=== PATIENT | female | born 2000 | race Hispanic/Latino ===

== ENCOUNTER 2018-06-14 14:44 | Emergency (ER) | payer SELFPAY ==
[2018-06-14 16:05] LABS: #Basophils 0.1 thou/uL (0.0-0.2); #Eosinphils 0.2 thou/uL (0.0-0.7); #Lymphocytes 2.2 thou/uL (1.20-3.40); #Monocytes 0.6 thou/uL (0.11-0.59); #Neutrophils 3.4 thou/uL (1.40-6.50); %Basophils 0.9 % (0.0-1.0); %Eosinophils 2.7 % (0.0-10.0); %Lymphocytes 34.4 % (28.0-48.0); Hemoglobin 9.3 g/dL (12.0-16.0); Mean Corpuscular HGB CONC 31.9 g/dL (32.0-36.0); Mean Corpuscular Hemoglobin 23.2 pg (25.0-35.0); Mean Corpuscular Volume 72.8 fL (78.0-98.0); Mean Platelet Volume 8.6 fL (7.4-10.4); Platelet Count 305 thou/uL (130-400); Red Blood Cell (RBC) Count 3.98 mill/uL (4.00-5.20); White Blood Cell (WBC) Count 6.5 thou/uL (4.8-10.8)
[2018-06-14 16:23] LABS: ALT (SGPT) 14 U/L (8-55); AST (SGOT) 14 U/L (5-30); Albumin 4.1 g/dL (3.5-5.0); Alkaline Phosphatase 95 U/L (40-150); Anion Gap 12 mmol/L (10-20); BUN (Urea Nitrogen) 7 mg/dL (8.4-21.0); Bilirubin, Total 0.4 mg/dL (0.2-1.2); Calc. Creatinine Clearance 0 mL/min (70-130); Calcium 9.1 mg/dL (7.8-10.44); Carbon Dioxide 23 mmol/L (22-29); Chloride 107 mmol/L (98-107); Estimated GFR-MDRD Greater than 90; Globulin 3.1 g/dL (2.4-3.5); Glucose 81 mg/dL (70-105); Potassium 3.9 mmol/L (3.5-5.1); Protein, Total 7.2 g/dL (6.0-8.3); Sodium 138 mmol/L (136-145)
[2018-06-14 18:33] LABS: BHCG - Serum Negative (NEGATIVE); Pregs Control Background? CLEAR/WHITE (CLR/WHITE); Pregs Control Bar Appear? YES (CONTROL BAR)
[2018-06-14] MEDS ORDERED: diphenhydrAMINE 50 MG/ML VIAL ONE (19:47)
[2018-06-14] MEDS ORDERED: Ketorolac Tromethamine 30 MG/ML VIAL ONE (19:47)
[2018-06-14] MEDS ORDERED: Metoclopramide HCl 10 MG/2 ML VIAL ONE (19:47)
[2018-06-14 20:40] LABS: Bilirubin Negative (Negative); Blood, Urine Negative (Negative); Clarity CLEAR (Clear); Glucose, Urine (Dipstick) Negative (Negative); Leukocyte Negative (Negative); Nitrite Negative (Negative); Protein, Urine (Dipstick) Negative (Neg-Trace); Specific Gravity, Urine 1.009 (1.002-1.036)
[2018-06-14 20:41] LABS: Pregnancy Test - Urine (BHCG) Negative (Negative); Pregu Control Background? CLEAR/WHITE (CLR/WHITE); Pregu Control Bar Appear? YES (CONTROL BAR); Specific Gravity 1.009 (1.002-1.036)
[2018-06-14] MEDS ORDERED: Meclizine HCl 25 MG TAB ONE (21:11)
== END 2018-06-14 21:55 | disposition home or self-care (01) ==
LOC: ERS 14:44
DX: R51 Headache (principal); D64.9 Anemia, unspecified
CPT/HCPCS: 36415; 80053; 81003; 81025; 84703; 85025; 86850; 86900; 86901; 96365; 96366; 96375; J1200; J1885; J2765; J8499

== ENCOUNTER 2019-04-10 11:10 | Emergency (ER) | payer OTHER, MEDICAID ==
[2019-04-10 11:35] LABS: Bilirubin Negative (Negative); Blood, Urine Negative (Negative); Clarity Turbid (Clear); Glucose, Urine (Dipstick) Normal (Negative); Leukocyte 25 Leu/uL (Negative); Mucous/LPF 1+ LPF (<2+); Nitrite Negative (Negative); Protein, Urine (Dipstick) 30 mg/dL (Neg-Trace); RBC/HPF 0-3 HPF (0-3); Urobilinogen 3 mg/dL (Less than 2)
[2019-04-10 11:44] LABS: Bacteria/HPF 1+ HPF (None Seen)
[2019-04-10] MEDS ORDERED: Acetaminophen 500 MG TAB ONE (11:45)
[2019-04-10] MEDS ORDERED: Ondansetron PF 4 MG/2 ML Vial ONE (11:45)
[2019-04-10 12:17] LABS: #Basophils 0.1 thou/uL (0.0-0.2); #Eosinphils 0.1 thou/uL (0.0-0.7); #Lymphocytes 0.9 thou/uL (1.20-3.40); #Monocytes 0.5 thou/uL (0.11-0.59); #Neutrophils 4.6 thou/uL (1.40-6.50); %Basophils 0.9 % (0.0-1.0); %Eosinophils 1.1 % (0.0-10.0); %Lymphocytes 15.3 % (28.0-48.0); %Monocytes 7.3 % (0.0-4.0); %Neutrophils 75.5 % (31.0-61.0); Mean Corpuscular HGB CONC 33.9 g/dL (32.0-36.0); Mean Corpuscular Hemoglobin 25.6 pg (25.0-35.0); Mean Corpuscular Volume 75.6 fL (78.0-98.0); Mean Platelet Volume 8.5 fL (7.4-10.4); Platelet Count 266 thou/uL (130-400); RBC Distribution Width 14.4 % (11.5-14.5); Red Blood Cell (RBC) Count 3.91 mill/uL (4.00-5.20); White Blood Cell (WBC) Count 6.1 thou/uL (4.8-10.8)
[2019-04-10 12:49] LABS: ALT (SGPT) 12 U/L (8-55); AST (SGOT) 18 U/L (5-34); Albumin 3.8 g/dL (3.5-5.0); Alkaline Phosphatase 80 U/L (40-100); Anion Gap 12 mmol/L (10-20); BUN (Urea Nitrogen) 9 mg/dL (7.0-18.7); Bilirubin, Total 0.7 mg/dL (0.2-1.2); Calc. Creatinine Clearance 0 mL/min (70-130); Calcium 9.2 mg/dL (7.8-10.44); Carbon Dioxide 23 mmol/L (22-29); Chloride 104 mmol/L (98-107); Estimated GFR-MDRD Greater than 90; Globulin 3.6 g/dL (2.4-3.5); Glucose 72 mg/dL (70-105); Lipase 17 U/L (8-78); Potassium 3.5 mmol/L (3.5-5.1); Protein, Total 7.4 g/dL (6.0-8.3); Sodium 135 mmol/L (136-145)
[2019-04-10] MEDS ORDERED: Morphine 4 MG/ML VIAL ONE (14:50)
--- NOTE | 2019-04-10 15:07 | MRI ---
LIMITED MRI OF THE ABDOMEN WITHOUT CONTRAST: Date: 04/10/2019 HISTORY: female with right lower quadrant abdominal pain. Concern for appendicitis. TECHNIQUE: Multiplanar, multisequence MR images were obtained of the abdomen without contrast. FINDINGS: There is an intrauterine . The cecum is displaced superiorly. No edema is seen surrounding t he cecum. There is a small structure adjacent to the cecum which may represent a normal appendix. No large fluid-filled appendix is seen to suggest acute appendicitis. No free fluid is seen in the pelvis. IMPRESSION: No evidence of acute appendicitis. POS: [facility]
== END 2019-04-10 15:30 | disposition home or self-care (01) ==
LOC: ERS 11:10
DX: O99.89 Other specified diseases and conditions complicating pregnancy, childbirth and the puerperium (principal); R10.31 Right lower quadrant pain; R19.7 Diarrhea, unspecified; O21.9 Vomiting of pregnancy, unspecified; Z3A.17 17 weeks gestation of pregnancy
CPT/HCPCS: 74181; 80053; 81003; 81015; 83690; 85025; 87804; 96361; 96374; J2270; J2405

== ENCOUNTER 2019-05-07 15:25 | Outpatient (CLI) | payer OTHER, MEDICAID ==
--- NOTE | 2019-05-07 17:05 | ULT ---
OBSTETRICAL ULTRASOUND: 05/07/19 COMPARISON: None. HISTORY: anatomy. TECHNIQUE: Multiplanar montesinos scale sonographic imaging of the gravid uterus obtained. FINDINGS: There is a single intrauterine gestation demonstrating a transverse presentation. The placenta is located posteriorly demonstrating no evidence for placental previa or abruption. head is to the maternal right. Amniotic fluid index is 13.1 cm. heart rate is 144 beats per minute. The nose and lips co uld not be well visualized on this examination secondary to position. intracranial contents, spine, four chamber heart view, kidneys, stomach, urinary bladder, umbil ical cord insertion, and umbilical cord appear grossly unremarkable. BIOMETRY: BPD 4.8 cm 20 weeks, 5 days Head circumference 18.7 cm 21 weeks, 1 day Abdominal circumference 15.5 cm 20 weeks, 5 days Femur length 3.4 cm 20 weeks, 5 days Average age based on ultrasound is 20 weeks, 6 days. Estimated date of delivery is 09/18/2019. Estimated weight is 373 grams +/- 54 grams. This is at the 24th percentile based on last menstr ual period. IMPRESSION: Single intrauterine gestation as detailed above. nose and lips are not well assessed on this ex am. POS: [facility]
== END 2019-05-07 15:26 | disposition home or self-care (01) ==
LOC: BICULT 15:25
PROVIDERS: ATTEND Family Medicine
DX: Z34.02 Encounter for supervision of normal first pregnancy, second trimester (principal); Z3A.20 20 weeks gestation of pregnancy
CPT/HCPCS: 76805

== ENCOUNTER 2019-07-28 00:48 | Day surgery (SDC) | payer MEDICAID, OTHER ==
[2019-07-28 01:14] VITALS: BP 111/57; TEMP 98.2; BMI 34.5
--- NOTE | 2019-07-28 01:47 | PDOC.FPROB ---
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 She reports pos movement, denies vag discahrge, vag bleeding, and LOF. Primary Care Physician: Amilcar FMR OB H&P: Current - Care : 1 Para: 0 Gestational age: 30 FMR OB H&P: History - Past Medical History PMH: Denies - OB History OB History: Primgravid, no complications reported this - TIMERS INSPECTOR History TIMERS INSPECTOR History: Denies - Surgical History Sx History: Denies - Social History Social History: Denies etoh, tobacco and drug use - Family History Family History: Denies FMR OB H&P: Medications - Current Home Medications: Medication Instructions Recorded Confirmed Type Iron Carb,Gl/FA/B12/C/Docusate 1 tab PO DAILY 07/28/19 07/28/19 History [Ferralet 90] 21/Iron Fu/Folic Acid 1 tablet PO DAILY 07/28/19 07/28/19 History [ Complete Caplet] Allergies/Adverse Reactions: Allergies Allergy/AdvReac Type Severity Reaction Status Date / Time No Known Allergies Allergy Verified 07/28/19 01:07 FMR OB H&P: ROS - Review of Systems General: denies: fever/chills, fatigue, recent trauma Eyes: denies: vision changes, scotomas ENT: denies: nasal congestion, rhinorrhea Cardiovascular: denies: chest pain Respiratory: denies: cough, shortness of breath Gastrointestinal: denies: abdominal pain, nausea, vomiting, diarrhea, constipation Genitourinary (Female): denies: incontinence, vaginal discharge, vaginal pain, vaginal bleeding, contractions, vaginal pressure Musculoskeletal: reports: pain (rt paralumbar/sciatic), stiffness, tenderness. denies: redness Neurologic: denies: numbness, weakness Integumentary: denies: rash Hematologic/Lymphatic: denies: prolonged or excessive bleeding FMR OB H&P: Vital Signs - Maternal Vital signs: Vital Signs - First Documented Temp Pulse Resp BP 98.2 F 63 18 111/57 L 07/28/19 01:06 07/28/19 01:06 07/28/19 01:06 07/28/19 01:06 - Heart Tones Baseline: 130 Variability: moderate Acceleration: present Deceleration: absent Category: category 1 [place] contractions every: None FMR OB H&P: Physical Exam - Physical Exam General: NAD, awake, alert and oriented HEENT: normocephalic and atraumatic, PERRLA, EOMI, MMM, conjunctiva clear, no scleral icterus, grossly normal vision, grossly normal hearing Neck: trachea midline, no LAD Heart: RRR, normal S1/S2, no murmurs/rubs/gallops, pulses present, no edema General: CTAB, no respiratory distress, good air movement, no rales/rhonchi, no wheezing Abdomen: soft, gravid, non-tender Musculoskeletal: normal gait and station, other (Pos straight leg on rt with paralumbar tenderness to palpation) Neurological: no focal deficit Lymphatic: no unusual bruising or bleeding, no purpura Psychiatric: normal mood and affect FMR OB H&P: A/P - Problem List (1) Musculoskeletal pain Current Visit: Yes Status: Acute Code(s): M79.18 - MYALGIA, OTHER SITE Disposition: Stable, recheck UA, pain control and monitor. Discussion: Date/Time: 07/28/19144 This H&P was discussed with Dr. Herrera who agrees with the above documentation and plan. 18 yo @ 32 weeks gestation presents for rt LBP and sciatic symptoms 1) MSK pain: - currently rated 7/10 - PO tylenol and benadryl for pain control - if no response 2mg IM morphine - no contractions on monitor FHTS reactive 2) ? UTI - dirty catch in outside ER, repeat clean catch if still dirty straight cath UA with reflex culture - abx if indicated pending results
[2019-07-28] MEDS ORDERED: hydrALAZINE 20 MG/ML VIAL SLOW IVP PRN (01:49)
[2019-07-28] MEDS ORDERED: diphenhydrAMINE 50 MG CAP PO SCH (01:51)
[2019-07-28] MEDS ORDERED: Acetaminophen 325 MG TAB PO SCH (02:00)
[2019-07-28] MEDS ORDERED: Morphine 4 MG/ML VIAL IM SCH (02:00)
[2019-07-28 02:14] LABS: Bacteria/HPF 1+ HPF (None Seen); Bilirubin Negative (Negative); Blood, Urine Negative (Negative); Clarity Turbid (Clear); Glucose, Urine (Dipstick) Normal (Negative); Leukocyte 250 Leu/uL (Negative); Mucous/LPF 1+ LPF (<2+); Nitrite Negative (Negative); Protein, Urine (Dipstick) 10 mg/dL (Neg-Trace); RBC/HPF 0-3 HPF (0-3); Squamous Epithelial 21-50 HPF (0-3); Urobilinogen 3 mg/dL (Less than 2); WBC/HPF 21-50 HPF (0-3)
[2019-07-28 02:15] LABS: Urine Culture Reflex No No
--- NOTE | 2019-07-28 02:38 | PDOC.BPN ---
<Vini Sahu - Last Filed: 07/28/19 02:37> - Brief Progress Note Repeat UA showed dirty catch, worse than previous with decreased bacterial content. No s/s of UTI. Pain well improved with tylenol, benadryl and IM morphine. Plan to DC to home with return precautions and recommend f/u with PCP next week. <Zina Herrera - Last Filed: 07/28/19 06:42> Addendum - Attending - Attending Attestation Date/Time: 07/28/19 0642 I personally evaluated the patient and discussed the management with Dr. Sahu. I agree with the History, Examination, Assessment and Plan documented above.
== END 2019-07-28 02:45 | disposition home or self-care (01) ==
LOC: L&D/OP 00:48
PROVIDERS: ATTEND Family Medicine
DX: O99.89 Other specified diseases and conditions complicating pregnancy, childbirth and the puerperium (principal); M79.18 Myalgia, other site; Z3A.32 32 weeks gestation of pregnancy
CPT/HCPCS: 81001; 96372; 99283; J2270; Q0163

== ENCOUNTER 2019-08-19 16:31 | Day surgery (SDC) | payer OTHER ==
[2019-08-19 16:36] VITALS: BMI 35.4
[2019-08-19 16:37] VITALS: BP 116/74; TEMP 99.3
[2019-08-19] MEDS ORDERED: hydrALAZINE 20 MG/ML VIAL SLOW IVP PRN (16:39)
--- NOTE | 2019-08-19 17:29 | PDOC.LDHP ---
Labor and Delivery H&P Chief complaint: contractions HPI: 18 y/o G1 at 35w6d, patient of Dr. Fitzgerald, presents with vaginal pain x 2 days and cramping starting this morning that she feels are similar to menstrual cramps. Denies VB, LOF, or decreased FM. ROS neg for HEENT, cv, pulm, gi, gu, neuro, psych, skin, musculoskeletal or constitutional symptoms other than mentioned above. OB History Details: first Current complications: none Past Medical History: migraines Current medications: pre-carlos a vitamins Previous surgical history: none Allergies/Adverse Reactions: Allergies Allergy/AdvReac Type Severity Reaction Status Date / Time No Known Allergies Allergy Verified 07/28/19 01:07 Social history: none - Physical Exam Vital signs reviewed and normal: yes General: NAD, resting Lungs: nonlabored breathing Abdomen: gravid Extremeties: no edema FHT: category 1 (140s, mod variability, + accels, no decels) [place] contractions every: irregular - Vaginal Exam cm dilated: 1 (exam limited due to maternal discomfort) Effacement: 25% Station: -3 - Assessment 18 y/o G1 at 35w6d with no e/o PTL. Declines to be rechecked. UA with no e/o infection and VP3 pending. status reassuring with reactive NST. - Plan -: D/c home with precautions. Advised to keep all appointments.
[2019-08-19 18:07] LABS: Bacteria/HPF None Seen HPF (None Seen); Bilirubin Negative (Negative); Blood, Urine Negative (Negative); Clarity Clear (Clear); Glucose, Urine (Dipstick) 30 mg/dL (Negative); Ketone, Urine Trace mg/dL (Negative); Leukocyte Negative Leu/uL (Negative); Nitrite Negative (Negative); Protein, Urine (Dipstick) 30 mg/dL (Neg-Trace); RBC/HPF 0-3 HPF (0-3); Specific Gravity, Urine 1.034 (1.002-1.036); Squamous Epithelial 0-3 HPF (0-3); Urine Culture Reflex No No; WBC/HPF 0-3 HPF (0-3)
== END 2019-08-19 18:28 | disposition home or self-care (01) ==
LOC: L&D/OP 16:31
PROVIDERS: ATTEND Family Medicine
DX: O47.03 False labor before 37 completed weeks of gestation, third trimester (principal); O23.593 Infection of other part of genital tract in pregnancy, third trimester; B96.89 Other specified bacterial agents as the cause of diseases classified elsewhere; Z3A.35 35 weeks gestation of pregnancy
CPT/HCPCS: 51701; 81001; 87480; 87510; 87660; 99283

== ENCOUNTER 2019-09-10 02:35 | Inpatient (IN) | payer OTHER ==
[2019-09-10 04:29] VITALS: BMI 36.0
[2019-09-10] MEDS ORDERED: Lidocaine 1% (PF) 30 ML VIAL SC PRN (04:38)
[2019-09-10] MEDS ORDERED: hydrALAZINE 20 MG/ML VIAL SLOW IVP PRN ×2 (04:38→15:25)
[2019-09-10] MEDS ORDERED: Acetaminophen 500 MG TAB PO PRN (04:38)
[2019-09-10] MEDS ORDERED: HYDROcodone/Acetaminophen 5/325 mg Tablet PO PRN ×4 (04:38→15:25)
[2019-09-10] MEDS ORDERED: Promethazine HCl 25 MG/ML VIAL IM PRN ×2 (04:38→09:11)
[2019-09-10] MEDS ORDERED: Butorphanol Tartrate 1 MG/ML VIAL SLOW IVP PRN (04:38)
[2019-09-10] MEDS ORDERED: NS / Oxytocin 40 units/1000ml 1,000 ML IV PRN (04:38)
[2019-09-10] MEDS ORDERED: Ondansetron PF 4 MG/2 ML Vial IVP PRN ×3 (04:38→15:25)
[2019-09-10] MEDS ORDERED: Ibuprofen 800 MG TAB PO PRN (04:38)
[2019-09-10] MEDS ORDERED: Lactated Ringer's 1,000 ML IV SCH ×2 (04:45)
[2019-09-10] MEDS ORDERED: NS w/ Oxytocin 10 units 500 ML IV SCH (04:45)
[2019-09-10] MEDS ORDERED: Penicillin G Potassium 5 MILL.UNITS in Sodium Chloride 0.9% 100 ML IVPB SCH (05:00)
[2019-09-10 05:25] LABS: Hemoglobin 7.8 g/dL (12.0-16.0); Mean Corpuscular HGB CONC 30.2 g/dL (32.0-36.0); Mean Corpuscular Volume 66.4 fL (78.0-98.0); Mean Platelet Volume 10.1 fL (7.4-10.4); Platelet Count 397 thou/uL (130-400); RBC Distribution Width 18.1 % (11.5-14.5); Red Blood Cell (RBC) Count 3.88 mill/uL (4.00-5.20); White Blood Cell (WBC) Count 8.1 thou/uL (4.8-10.8)
[2019-09-10 06:05] LABS: HBSAg Index 0.12 S/CO (0-0.99); Hep B Surf Ag Non-Reactive S/CO (NonReactive); Syphilis Antibody Nonreactive (Nonreactive); Syphilis Antibody Index 0.04 S/CO (<1.00 Non-Reactive)
[2019-09-10] MEDS ORDERED: Fentanyl 4 mcg/Bup 0.1% Cadd 100 ML ONE (08:42)
[2019-09-10] MEDS ORDERED: Acetaminophen 325 MG TAB PO PRN (09:11)
[2019-09-10] MEDS ORDERED: Naloxone HCl 0.4 mg/ml Vial IVP PRN ×2 (09:11)
[2019-09-10] MEDS ORDERED: Lactated Ringer's 500 ML IV PRN (09:11)
[2019-09-10] MEDS ORDERED: diphenhydrAMINE 50 MG/ML VIAL IVP PRN (09:11)
[2019-09-10] MEDS ORDERED: EPHEDRINE 25 MG/5 ML SYRINGE SLOW IVP PRN (09:11)
[2019-09-10] MEDS ORDERED: Fentanyl 4 mcg/Bupivacaine 0.1% Cassette 100 ML EPIDURAL SCH (09:15)
[2019-09-10] MEDS ORDERED: Communication Order-Pharmacy FS SCH (09:15)
[2019-09-10] MEDS: Penicillin G 2.5 MILL.units 2.5 MILL.UNITS in Premix Bag 1 BAG IVPB SCH ×2 (09:37→13:31)
[2019-09-10] MEDS ORDERED: Lidocaine 1% (PF) 30 ML VIAL ONE (13:29)
[2019-09-10] MEDS ORDERED: NS / Oxytocin 40 units/1000ml 1,000 ML ONE (13:29)
[2019-09-10] MEDS: NS / Oxytocin 40 units/1000ml 1,000 ML IV SCH ×2 (14:26→16:53)
[2019-09-10] MEDS ORDERED: Milk Of Magnesia 30 ML UDCUP PO PRN (15:25)
[2019-09-10] MEDS ORDERED: Bisacodyl 10 MG SUPP PR PRN (15:25)
[2019-09-10] MEDS ORDERED: Preparation H Ointment 28 GM TUBE PR PRN (15:25)
[2019-09-10] MEDS ORDERED: Lanolin Ointment 7 GM TUBE TOP PRN (15:25)
[2019-09-10] MEDS ORDERED: diphenhydrAMINE 25 MG CAP PO PRN (15:25)
[2019-09-10] MEDS ORDERED: Adacel (T-DAP) 0.5 ML SYRINGE IM ONE (15:25)
[2019-09-10] MEDS: Ibuprofen 800 MG TAB PO SCH (17:59)
[2019-09-10] MEDS: Ferrous Sulfate 325 MG TAB PO SCH (17:59)
[2019-09-11] MEDS: Ibuprofen 800 MG TAB PO SCH ×4 (01:04→22:27)
[2019-09-11] MEDS: Docusate Calcium (SURFAK) 240 MG CAP PO SCH ×3 (01:05→22:27)
[2019-09-11 05:19] LABS: Hemoglobin 6.3 g/dL (12.0-16.0); Mean Corpuscular HGB CONC 30.6 g/dL (32.0-36.0); Mean Corpuscular Hemoglobin 20.6 pg (25.0-35.0); Mean Corpuscular Volume 67.6 fL (78.0-98.0); Platelet Count 308 thou/uL (130-400); RBC Distribution Width 17.9 % (11.5-14.5); Red Blood Cell (RBC) Count 3.07 mill/uL (4.00-5.20); White Blood Cell (WBC) Count 10.5 thou/uL (4.8-10.8)
[2019-09-11] MEDS: Ferrous Sulfate 325 MG TAB PO SCH ×2 (09:14→16:19)
[2019-09-11 11:36] LABS: SARS-CoV-2 MS2 Positive; SARS-CoV-2 N Gene Negative; SARS-CoV-2 S Gene Negative; SARS-CoV-2 by NAA Not Detected (NotDetected); SARS-CoV-2 orf1ab Negative
[2019-09-12] MEDS: Ibuprofen 800 MG TAB PO SCH ×2 (05:58→13:35)
[2019-09-12 08:12] VITALS: BP 114/64; TEMP 98.5
[2019-09-12] MEDS: Ferrous Sulfate 325 MG TAB PO SCH ×2 (08:22→17:07)
[2019-09-12] MEDS: Docusate Calcium (SURFAK) 240 MG CAP PO SCH (08:22)
== END 2019-09-12 18:23 | disposition home or self-care (01) | DRG 807 ==
LOC: L&D/OP 02:35 → L&D 04:37 → 3SE 16:06
PROVIDERS: ADMIT Family Medicine; ATTEND Family Medicine
PROC: 10E0XZZ Delivery of Products of Conception, External Approach (ICD-10-PCS; principal; 2019-09-10)
PROC: 0W8NXZZ Division of Female Perineum, External Approach (ICD-10-PCS; 2019-09-10)
PROC: 0HQ9XZZ Repair Perineum Skin, External Approach (ICD-10-PCS; 2019-09-10)
DX: O99.824 Streptococcus B carrier state complicating childbirth (principal); Z37.0 Single live birth; O69.81X0 Labor and delivery complicated by cord around neck, without compression, not applicable or unspecified; O70.0 First degree perineal laceration during delivery; Z3A.39 39 weeks gestation of pregnancy
CPT/HCPCS: 36415; 51702; 85027; 86780; 86850; 86900; 86901; 87340; 87635; 99285; J0595; J2001; J2540; J2590; J3490; U0003

== ENCOUNTER 2020-04-10 14:13 | Emergency (ER) | payer OTHER ==
[2020-04-10 14:51] LABS: #Basophils 0.1 thou/uL (0.0-0.2); #Eosinphils 0.2 thou/uL (0.0-0.7); #Monocytes 0.5 thou/uL (0.11-0.59); #Neutrophils 6.8 thou/uL (1.40-6.50); %Basophils 0.6 % (0.0-1.0); %Eosinophils 1.7 % (0.0-10.0); %Lymphocytes 28.7 % (21.0-51.0); %Monocytes 4.8 % (0.0-10.0); %Neutrophils 64.2 % (42.0-75.0); Hemoglobin 10.2 g/dL (12.0-16.0); Mean Corpuscular HGB CONC 32.3 g/dL (32.0-36.0); Mean Corpuscular Hemoglobin 22.2 pg (27.0-31.0); Mean Corpuscular Volume 68.6 fL (78.0-98.0); Mean Platelet Volume 9.7 fL (7.4-10.4); Platelet Count 399 thou/uL (130-400); RBC Distribution Width 17.1 % (11.5-14.5); Red Blood Cell (RBC) Count 4.58 mill/uL (4.20-5.40); White Blood Cell (WBC) Count 10.6 thou/uL (4.8-10.8)
[2020-04-10 14:56] LABS: BHCG - Serum Negative (NEGATIVE); Pregs Control Background? CLEAR/WHITE (CLR/WHITE); Pregs Control Bar Appear? YES (CONTROL BAR)
[2020-04-10 15:12] LABS: MDiff Complete? YES; Microcytosis MODERATE=15-30 cells (100X) (0-5/hpf); Ovalocytes SLIGHT = 2-5 cells (100X) (0-1/hpf); Platelet Morphology Comment Appears Adequate; Polychromasia SLIGHT = 2-3 cells (100X) (0-2/hpf); Tear Drops SLIGHT = 2-5 cells (100X) (0-1/hpf)
[2020-04-10 16:34] LABS: Bacteria/HPF None Seen HPF (None Seen); Bilirubin Negative (Negative); Blood, Urine 2+ (Negative); Clarity Clear (Clear); Glucose, Urine (Dipstick) Normal (Negative); Ketone, Urine Negative (Negative); Leukocyte 75 Leu/uL (Negative); Nitrite Negative (Negative); Protein, Urine (Dipstick) Negative (Neg-Trace); RBC/HPF Greater than 50 HPF (0-3); Specific Gravity, Urine 1.017 (1.002-1.036); Squamous Epithelial 0-3 HPF (0-3); Urobilinogen Normal mg/dL (Less than 2)
--- NOTE | 2020-04-10 16:50 | ULT ---
Pelvic sonogram transabdominal and transvaginal imaging with duplex evaluation HISTORY: Pelvic pain. FINDINGS: Urinary bladder is decompressed. Uterus has a heterogeneous echotexture and measures up to 7.9 cm. Endometrial thickness 0.4 cm. Echogenic bar within the endometrial cavity consistent with IUD. Physiologic amount of free fluid within the cul-de-sac. Each ovary shows follicles and demonstrates good color and spectral Doppler flow. IMPRESSION : IUD in place. No abnormalities are demonstrated.
[2020-04-14 21:53] LABS: Chlamydia by PCR Not Detected (NotDetected); GC by PCR Not Detected (NotDetected)
== END 2020-04-10 17:04 | disposition home or self-care (01) ==
LOC: ERS 14:13
DX: N92.6 Irregular menstruation, unspecified (principal); N39.0 Urinary tract infection, site not specified; D64.9 Anemia, unspecified; Z79.899 Other long term (current) drug therapy
CPT/HCPCS: 36415; 76856; 81003; 81015; 84703; 85025; 87480; 87491; 87510; 87591; 87660

== ENCOUNTER 2021-06-21 10:00 | Outpatient (CLI) | payer OTHER | END 2021-06-21 10:01 | disposition home or self-care (01) | LOC: ULT 10:00 | PROVIDERS: ATTEND Nurse Practitioner Family | DX: R79.89 Other specified abnormal findings of blood chemistry (principal); K76.0 Fatty (change of) liver, not elsewhere classified | CPT/HCPCS: 76700 ==